=== PATIENT | female | born 1995 | race Caucasian/White ===

== ENCOUNTER 2016-11-28 23:34 | Emergency (ER) | payer BC ==
[~2016-11-28] VITALS: Ht 160 cm; Wt 63.6 kg
[2016-11-28 23:37] VITALS: BP 119/83; TEMP 98.3
[2016-11-28] MEDS ORDERED: NUVARING VAG RING VG (23:40)
[2016-11-29 01:14] VITALS: PULSE 89
== END 2016-11-29 01:16 | disposition home or self-care (01) ==
LOC: COL.ER 23:34
DX: S51.811A Laceration without foreign body of right forearm, initial encounter (principal); S61.212A Laceration without foreign body of right middle finger without damage to nail, initial encounter; S61.214A Laceration without foreign body of right ring finger without damage to nail, initial encounter; W22.8XXA Striking against or struck by other objects, initial encounter; W25.XXXA Contact with sharp glass, initial encounter; Y92.009 Unspecified place in unspecified non-institutional (private) residence as the place of occurrence of the external cause